=== PATIENT | female | born 1955 ===

== ENCOUNTER 2020-01-09 09:53 | Day surgery (SDC) | payer OTHER ==
[~2020-01-09] VITALS: Ht 162.6 cm; Wt 76.8 kg
== END 2020-01-09 11:19 | disposition home or self-care (01) ==
LOC: ORSCSDS 09:53
PROVIDERS: Surgery
PROC: 0DJD8ZZ Inspection of Lower Intestinal Tract, Via Natural or Artificial Opening Endoscopic (ICD-10-PCS; principal; 2020-01-09 11:00)
DX: Z12.11 Encounter for screening for malignant neoplasm of colon (principal); E66.9 Obesity, unspecified; Z68.30 Body mass index [BMI] 30.0-30.9, adult; Z79.899 Other long term (current) drug therapy
CPT/HCPCS: J2704; J7120

== ENCOUNTER 2023-09-27 06:04 | Day surgery (SDC) | payer OTHER ==
[~2023-09-27] VITALS: Ht 162.6 cm; Wt 78.6 kg
[2023-09-27] VITALS (13 sets, daily range): BP systolic 99–116; BP diastolic 60–71
[~2023-09-27 06:04] MED LIST: ALBU90OI INH; Children's Che1 EAC1 PO; PROZAC2010 PO; Prozac20 MG PO
[2023-09-27] MEDS ORDERED: Lactated Ringer's 1,000 ML IV SCH (06:20)
[2023-09-27] MEDS ORDERED: IBUP200 PO (06:23)
[2023-09-27] MEDS ORDERED: Rocuronium Bromide 10 MG/ML 5ML Injection IV ONE ×2 (06:50→08:22)
[2023-09-27] MEDS ORDERED: propofoL 20 ML IV ONE (06:50)
[2023-09-27] MEDS ORDERED: Lidocaine HCl 2% 20 ML MDV ONE (06:50)
[2023-09-27] MEDS ORDERED: FentaNYL Citrate 50 MCG/ML 2 ML Injection ONE ×2 (06:51→09:02)
[2023-09-27] MEDS ORDERED: FentaNYL Citrate 50 MCG/ML 2 ML Injection IV PRN ×3 (07:00→07:05)
[2023-09-27] MEDS ORDERED: Lidocaine HCl 1% 5 ML SYR INJ ONE (07:00)
[2023-09-27] MEDS ORDERED: Midazolam HCl 1MG / ML 2ML Vial IV ONE (07:00)
[2023-09-27] MEDS ORDERED: Ondansetron HCl 2 MG / ML 2ML Vial IV PRN (07:05)
[2023-09-27] MEDS ORDERED: CefOXitin Sodium 2,000 MG in NS 50 ML IV SCH (07:05)
[2023-09-27] MEDS ORDERED: Bupivacaine 0.5% HCl 5 MG/ML 30MLVIAL ONE (07:06)
[2023-09-27] MEDS ORDERED: Lidocaine HCl 2% Jelly 120MG/6ML SYR (20MG PER ML) ONE (07:13)
[2023-09-27] MEDS ORDERED: Phenylephrine HCl 100 MCG/ML-NS 10MLSYR (1MG/10ML) ONE (07:29)
[2023-09-27] MEDS ORDERED: Glycopyrrolate 0.2 MG/ML 5ML VIAL ONE (07:38)
[2023-09-27] MEDS ORDERED: ePHEDrine Sulfate 50 MG/ML 1ML Injection ONE (07:39)
[2023-09-27] MEDS ORDERED: Sugammadex Sodium 200 MG/2ML SDV (100 MG/ML) ONE (08:24)
[2023-09-27] MEDS ORDERED: Flumazenil 0.1 MG / ML 5ML Vial ONE (08:37)
[2023-09-27] MEDS ORDERED: HYDROcodone 5-APAP 325 TAB PO PRN (08:55)
--- NOTE | 2023-09-27 09:30 | NUR ---
0915 RECEIVED PT FROM PACU S/P LORENZO TORRES. PT SLEEPY. VSS, 4 SMALL 2X2 DRESSINGS ON ABDOMEN DRY AND INTACT. SATES PAIN LEVEL 5-6, DENIES NAUSEA WATER AND CRACKERS GIVEN. 09 TOLERATE WATER AND CRACKERS. PO PAIN MED GIVEN. CALLED PATIENTS SON TO COME IN AND GET PAIN RX TO TAKE TO [facility] WHILE IS WAKING AND RECOVERING
--- NOTE | 2023-09-27 11:16 | NUR ---
1100 PT FEELING "MUCH BETTER" STATES READY TO GO HOME, NAUSEA GONE, DC INSTRUCTIONS REVIEWED. PT VERBALIZED UNDERSTANDING. SLIGHT PINK DRAINAGE NOTED ON UMBILICAL INCISION DRESSING. ADVISED CHANGE DRESSING NEEDED IF DRAINAGE CONTINUES NOTIFY DR ERICKSON OFFICE 1105 TO CAR VIA W/C CARE TURNED OVER TO SON
== END 2023-09-27 11:05 | disposition home or self-care (01) ==
LOC: ORSCMMR 06:04 → ORD 07:30 → ORSCMMR 11:05
PROVIDERS: Surgery
PROC: 0FT44ZZ Resection of Gallbladder, Percutaneous Endoscopic Approach (ICD-10-PCS; principal; 2023-09-27 07:30)
DX: K82.4 Cholesterolosis of gallbladder (principal); R74.8 Abnormal levels of other serum enzymes; F32.A Depression, unspecified; J45.909 Unspecified asthma, uncomplicated; Z79.899 Other long term (current) drug therapy
CPT/HCPCS: 74300; 88304; A9270; C1894; J0694; J2250; J2371; J2405; J2704; J3010; J7120

== ENCOUNTER 2024-10-16 07:00 | Day surgery (SDC) | payer OTHER ==
[~2024-10-16] VITALS: Ht 162.6 cm; Wt 71.8 kg
[~2024-10-16 07:00] MED LIST changes: +IBUP200 PO
[2024-10-16] MEDS ORDERED: Bupivacaine 0.5% W/EPI 1:200000 SDV 30 ML Vial ONE (07:06)
[2024-10-16] MEDS ORDERED: Midazolam HCl 1MG / ML 2ML Vial ONE (07:43)
[2024-10-16] MEDS ORDERED: FentaNYL Citrate 50 MCG/ML 2 ML Injection ONE ×3 (07:43→10:56)
[2024-10-16] MEDS ORDERED: Bupivacaine 0.5% HCl 5 MG/ML 30MLVIAL ONE (07:44)
[2024-10-16] MEDS ORDERED: CeFAZolin Sodium 2,000 MG VIAL ONE (08:08)
--- NOTE | 2024-10-16 08:23 | NUR ---
10/16/24 0823 Owen De Leon POP NERVE BLOCK ADMINISTERED IN PRE OP. TIME OUT AT 0816 WITH JUAN MANUEL Geronimo RN AND MICHAELA Mcdonald CRNA. 4 INCH NEEDLE USED. START TIME AT 0820. END TIME AT 08. PT ON 3L O2, O2 SATURATIONS MAINTAINED 99-100%.
[2024-10-16] MEDS ORDERED: Phenylephrine HCl 10mg/ml 1 ml Vial ONE (09:04)
[2024-10-16] MEDS ORDERED: Ketorolac Tromethamine 30mg Vial ONE (10:15)
[2024-10-16 10:54] VITALS: BP 101/53
[2024-10-16] MEDS ORDERED: Ondansetron HCl 2 MG / ML 2ML Vial ONE (10:55)
[2024-10-16] MEDS ORDERED: OxyCODONE 5 mg/Acetamin 325 mg TABLET ONE (11:29)
== END 2024-10-16 11:38 | disposition home or self-care (01) ==
LOC: ORSCSDS 07:00
PROVIDERS: Podiatrist Foot & Ankle Surgery
PROC: 0SGH04Z Fusion of Right Tarsal Joint with Internal Fixation Device, Open Approach (ICD-10-PCS; principal; 2024-10-16 08:15)
DX: M21.41 Flat foot [pes planus] (acquired), right foot (principal); F41.9 Anxiety disorder, unspecified; F32.A Depression, unspecified; Z79.899 Other long term (current) drug therapy
CPT/HCPCS: A6253; A9270; C1713; C1769; J0166; J0690; J1885; J2250; J2371; J2405; J2704; J3010; J7120

== ENCOUNTER 2025-02-16 10:30 | Day surgery (SDC) | payer OTHER ==
[~2025-02-16] VITALS: Ht 160 cm; Wt 68.1 kg
[~2025-02-16 10:30] MED LIST changes: +Bupivacaine 0.5% HCl 5 MG/ML 30MLVIAL ONE; +Bupivacaine 0.5% W/EPI 1:200000 SDV 30 ML Vial ONE; +Dexmedetomidine HCL 200 MCG / 2 ML ONE; +Lidocaine 2%-Epineph 1:200000 20 ML SDV ONE
[2025-02-16] MEDS ORDERED: CeFAZolin Sodium 2,000 MG VIAL ONE (10:40)
[2025-02-16] MEDS ORDERED: FentaNYL Citrate 50 MCG/ML 2 ML Injection ONE ×2 (10:46→12:30)
[2025-02-16] MEDS ORDERED: Midazolam HCl 1MG / ML 2ML Vial ONE (10:47)
[2025-02-16] MEDS ORDERED: WEGOVY0.25 MG/0. SQ (10:50)
[2025-02-16] MEDS ORDERED: VITAMIN D32000 UNI1 PO (10:51)
--- NOTE | 2025-02-16 12:14 | NUR ---
02/16/25 1214 Doreen Chapman TIME OUT PERFORMED AT BEDSIDE AT 1155 PRIOR TO START OF POPLITEAL BLOCK WITH DR HOPSON. NERVE BLOCK STARTED AT 12:00 AND ENDED AT 12:04. PT ON 3L O2 VIA N/C THROUGHOUT PROCEDURE AND SPO2 AND HR CONTINUOUSLY MONITORED. PT TOLERATED PROCEDURE WELL.
[2025-02-16] MEDS ORDERED: ePHEDrine Sulfate 50 MG/ML 1ML Injection ONE (12:22)
[2025-02-16] MEDS ORDERED: Phenylephrine HCl 100 MCG/ML-NS 10MLSYR (1MG/10ML) ONE (12:29)
[2025-02-16] MEDS ORDERED: Dexamethasone Sod Phos 10 MG/ML 1ML VIAL ONE (12:37)
[2025-02-16] MEDS ORDERED: Ondansetron HCl 2 MG / ML 2ML Vial ONE (12:37)
--- NOTE | 2025-02-16 14:34 | NUR ---
02/16/25 1434 Radha Sifuentes 1433 PT C/O PAIN 09/07 THROBBING LEFT ANKLE, WILL MEDICATE PER ORDERS.
[2025-02-16] MEDS ORDERED: OxyCODONE 5 mg/Acetamin 325 mg TABLET ONE (14:38)
[2025-02-16 14:55] VITALS: BP 99/61
--- NOTE | 2025-02-16 16:07 | NUR ---
02/16/25 1607 Radha Sifuentes 1525 PT D/CD HOME IN STABLE CONDITION , PAIN DECREASED TO A MANGO LEVEL 4-5 , VSS , ACCOMPANIED BY SON BAND SPLICER, ALL BELONGINGS RETURNED.
== END 2025-02-16 15:25 | disposition home or self-care (01) ==
LOC: ORSCSDS 10:30
PROVIDERS: Podiatrist Foot & Ankle Surgery
PROC: 0SGJ04Z Fusion of Left Tarsal Joint with Internal Fixation Device, Open Approach (ICD-10-PCS; principal; 2025-02-16 12:15)
DX: M21.42 Flat foot [pes planus] (acquired), left foot (principal); M19.072 Primary osteoarthritis, left ankle and foot; F41.9 Anxiety disorder, unspecified; F32.A Depression, unspecified; Z79.899 Other long term (current) drug therapy; Z79.85 Long-term (current) use of injectable non-insulin antidiabetic drugs
CPT/HCPCS: A6253; A9270; C1713; C1734; C1769; J0690; J1100; J2250; J2371; J2405; J2704; J3010; J7120